=== PATIENT | female | born 1960 | race Caucasian/White ===

== ENCOUNTER → 2022-09-27 | Outpatient (CLI) | payer SELFPAY, OTHER ==
--- NOTE | 2022-09-27 14:24 | US_ITS ---
INDICATION: E05.80/THYROTOXIC CRISIS EXAMINATION: Ultrasound US Thyroid (eg thyroid, parathyroid, parotid) TECHNIQUE: Phillips scale and color doppler imaging was performed of the thyroid gland. COMPARISON: None. FINDINGS: RIGHT THYROID LOBE: 4.5 x 1.6 x 1.5 cm. Homogeneous echotexture with normal vascularity. [No thyroid nodules are present. LEFT THYROID LOBE: 4.4 x 1.5 x 1.5 cm. Homogeneous echotexture with normal vascularity. [No thyroid nodules are present. ISTHMUS: 2 mm. No thyroid nodules are present. US/Thyroid IMPRESSION: Negative thyroid ultrasound examination. Electronically Signed: Anderson Paul MD at 18:55 EDT ,
== END | disposition home or self-care (01) ==
PROVIDERS: PCP Nurse Practitioner Family; Referring Provider Nurse Practitioner Family; Visit Provider Nurse Practitioner Family
DX: E05.80 Other thyrotoxicosis without thyrotoxic crisis or storm (principal)
CPT/HCPCS: 76536